=== PATIENT | male | born 1955 | race Caucasian/White ===

== ENCOUNTER 2024-03-30 08:23 | Emergency (ER) | payer MEDICARE ==
[~2024-03-30] VITALS: Ht 172.7 cm; Wt 86.1 kg
[2024-03-30 10:48] VITALS: BP 178/107
== END 2024-03-30 11:02 | disposition home or self-care (01) ==
LOC: ED 08:23
DX: S80.01XA Contusion of right knee, initial encounter (principal); W22.09XA Striking against other stationary object, initial encounter; Y92.009 Unspecified place in unspecified non-institutional (private) residence as the place of occurrence of the external cause